=== PATIENT | male | born 1975 | race Caucasian/White ===

== ENCOUNTER → 2021-09-27 | Outpatient (CLI) | payer OTHER ==
--- NOTE | 2021-09-27 15:24 | US ---
EXAMINATION TYPE: US venous doppler duplex LE RT DATE OF EXAM: 09/27/2021 1:16 PM COMPARISON: NONE CLINICAL HISTORY: 46-year-old male M79.661 PAIN IN RT LOWER LEG. Pain right lower leg. Redness/palpab le right upper calf SIDE PERFORMED: right TECHNIQUE: The lower extremity deep venous system is examined utilizing real time linear array sonog kalina with graded compression, doppler sonography and color-flow sonography. FINDINGS: VESSELS IMAGED: Common Femoral Vein Deep Femoral Vein Greater Saphenous Vein * Femoral Vein Popliteal Vein Small Saphenous Vein * Proximal Calf Veins (* superficial vessels) Right Leg: no evidence of DVT. Superficial thrombus noted within area of concern, right upper/mid ca lf IMPRESSION: 1. No evidence for DVT within the right lower extremity imaged from the groin to the upper calf. 2. At the site of patient's pain and palpable abnormality, there is SVT noted along the upper to mid calf.
== END | disposition home or self-care (01) ==
LOC: RADUSWWP 12:52
PROVIDERS: ATTEND Family Medicine
DX: I82.811 Embolism and thrombosis of superficial veins of right lower extremity (principal)